=== PATIENT | female | born 1950 | race Caucasian/White ===

== ENCOUNTER 2020-04-04 19:02 | Inpatient (IN) | payer OTHER ==
[~2020-04-04] VITALS: Ht 160 cm; Wt 99.8 kg
--- NOTE | 2020-04-04 19:10 | NUR ---
BIB MEDICS W/ RT LOWER LEG PAIN S/P TRIP & FALL OVER HER . MOST OF PAIN & SWELLING IS RIGHT UNDER RT KNEE BUT HURTS ALL THE WAY DOWN TO HER ANKLE. PAIN IS 10/10 & IS WORSE W/ MOVEMENT. PT ALSO MENTIONS VAGINAL BLEEDING X 2 DAYS; STATES TALKED TO HER DOCTOR'S NURSE ABOUT IT & WAS TOLD MD WILL CALL HER ON TUESDAY TO DISCUSS THIS. DENIES HEMATURIA OR RECTAL BLEEDING. DENIES OTHER INJURY OR CURRENT ILLNESS. PT IS [place]-SPEAKING ONLY.
--- NOTE | 2020-04-04 19:15 | NUR ---
MSE BY JESSA PATRICK.
[2020-04-04 19:16] VITALS: Ht 160 cm; Wt 99.8 kg
--- NOTE | 2020-04-04 19:30 | NUR ---
PT BIBA FOR RLE PAIN TO ANKLE AND KNEE. STS WHO USES WALKER LOSS BALANCE AND FELL ONTOP OF PT. SWELLING NOTED, PT ABLE TO MOVE ALL TOES. NO DEFORMITY. ICE PACK GIVEN. PT MEDICATED FOR PAIN. STS NO ALLERGY TO MEDS.
--- NOTE | 2020-04-04 20:08 | NUR ---
PORTABLE X-RAYS IN PROGRESS.
--- NOTE | 2020-04-04 20:28 | NUR ---
PT LAYING SUPINE IN GURNEY. AAO X4 RESPIRATIONS E/U NO DISTRESS.
--- NOTE | 2020-04-04 20:53 | NUR ---
SEEN IN ROOM 2A. VITAL SIDNS RE CHECK. LAB AT THE BEDSIDE DRAWING BLOOD.
[2020-04-04 21:11] LABS: BASOPHIL % 0.5 % (0-2); PLATELET COUNT 202 x10^3mcL (130-400)
[2020-04-04 21:12] LABS: RED CELL DISTRIBUTION WIDTH 15.1 % (11.5-14.5)
[2020-04-04 21:19] LABS: CALCIUM 9.6 mg/dL (8.5-10.1); CARBON DIOXIDE 30.8 mmol/L (21-32); CHLORIDE SERUM 104 mmol/L (98-107); CREATININE SERUM 0.9 mg/dL (0.6-1.0); GLUCOSE SERUM 107 mg/dL (74-106); SODIUM SERUM 141 mmol/L (136-145)
[2020-04-04 21:23] LABS: ALBUMIN 3.6 g/dL (3.4-5.0); ALKALINE PHOSPHATASE 83 U/L (46-116); ALT/SGPT 56 U/L (14-59); AST/SGOT 30 U/L (15-37); BILIRUBIN TOTAL 0.3 mg/dL (0.20-1.00); TOTAL PROTEIN, SERUM 7.7 g/dL (6.4-8.2)
--- NOTE | 2020-04-04 22:01 | NUR ---
PATIENT WENT FOR CT SCAN.
--- NOTE | 2020-04-04 22:24 | NUR ---
PATIENT RETURN FROM CT SCAN. MEDICATED WITH MORPHINE IM AND WENT BACK FOR CT OF THE RIGHT ANKLE.
--- NOTE | 2020-04-04 22:52 | NUR ---
PATIENT RETURN FROM CT SCAN, HAD ANKLE CT DONE. SALINE LOCK INSERTED TO THE RIGHT HAND # 22. NASAL SEAB DONE FOR [employer]. SPECIMEN PLACED IN LAB BOX.
--- NOTE | 2020-04-04 23:41 | NUR ---
REPORT WAS GIVEN TO GISELLE. PATIENT WILL BE TRANSPORTED TO ROOM 243B.
[2020-04-04] MEDS ORDERED: ZESTRIL2.5 MG PO (23:47)
[2020-04-04] MEDS ORDERED: SIMVASTATIN80 M1 PO (23:48)
[2020-04-04] MEDS ORDERED: IBU600 M2 PO (23:48)
[2020-04-04 23:49] LABS: MAGNESIUM 2.2 mg/dL (1.8-2.4)
[2020-04-04] MEDS ORDERED: TRAMADOL HYDROC1 TA1 PO (23:51)
[2020-04-04 23:59] LABS: CHOLESTEROL/HDL RATIO 2.7
--- NOTE | 2020-04-05 00:09 | NUR ---
TECH AT THE BEDSIDE TO PLACE SPLINT TO THE RIGHT LEG
--- NOTE | 2020-04-05 00:40 | NUR ---
PATIENT HAD A LONGLEG SPLINT PLACE ON THE RIGHT LEG, THEN WAS TRANSPORTED TO ROOM 234B.
[2020-04-05 00:51] VITALS: BP 169/81
--- NOTE | 2020-04-05 01:11 | NUR ---
RECEIVED PT FROM ER VIA [facility] TRANSFER TO BED WITH 4 STAFFS ASSIST, PT EXPERIENCE LOT OF PAIN 9/10 RLE. ALLOW PT TIME TO SITUATED. PLACE TELE #44 ST 109 NOTED. ORIENTED TO CALL LIGHT AND WITHIN REACH. INTERVIEW AND ASSESS PT. DR. POON CAME IN TO INTERVIEW PATIENT. CARE ENDORSE TO JOYCELYN MARTIN.
--- NOTE | 2020-04-05 06:02 | NUR ---
PT SLEPT AT INTERVALS THROUGHOUT THE NIGHT, BREATHING EVEN AND UNLABORED ON RA. COLON CATH INSERTED, DRAINING YELLOW URINE. CONSENT OBTAINED FOR SURGERY. ALL NEEDS ASSESSED AND ATTENDED TO. NO ACUTE DISTRESS NOTED. BED AT LOWEST SETTING. SIDE RAILS X2 UP. CALL LIGHT WITHIN REACH. WILL CONT TO MONITOR.
[2020-04-05 06:21] VITALS: BP 144/79
[2020-04-05 06:59] LABS: BASOPHIL % 0.2 % (0-2); PLATELET COUNT 157 x10^3mcL (130-400)
--- NOTE | 2020-04-05 07:06 | NUR ---
RECEIVED PT FROM LEAD BUSINESS SYSTEMS ANALYST RN. AOX4 ABLE TO MAKE NEEDS KNOWN, DENIES FRIED/DIZZINESS. TELE 44 SR. LUNGS CTA, DENIES SOB/COUGH, RESP E/U, ON RA. ABDOMEN SOFT/ROUND DENIES N/V/D, BOWEL SOUNDS ACTIVE. COLON CATHETER IN PLACE, DRAINING YELLOW URINE. WEAKNESS TO RLE NOTED. PT SCHEDULED FOR SX THIS AM FOR R TIBIA FX. SKIN INTACT. NO C/O PAIN AT THIS TIME. IV TO RH WITH NS 1OOML/HR. CALL LIGHT IN REACH, WILL CONTINUE TO MONITOR.
[2020-04-05 07:07] LABS: RED CELL DISTRIBUTION WIDTH 15.1 % (11.5-14.5)
[2020-04-05 07:26] LABS: CALCIUM 8.8 mg/dL (8.5-10.1); CARBON DIOXIDE 25.6 mmol/L (21-32); CHLORIDE SERUM 106 mmol/L (98-107); CREATININE SERUM 0.8 mg/dL (0.6-1.0); GLUCOSE SERUM 100 mg/dL (74-106); MAGNESIUM 2.1 mg/dL (1.8-2.4); PHOSPHOROUS 3.5 mg/dL (2.5-4.9); SODIUM SERUM 140 mmol/L (136-145)
[2020-04-05 08:08] LABS: UA SPECIFIC GRAVITY >=1.030 (1.005-1.035); microscopic required? YES; urine erythrocyte 2+ (NEGATIVE)
[2020-04-05 08:27] VITALS: BP 143/85
[2020-04-05 08:33] LABS: AMPHETAMINE QUAL UR NONE DETECTED (See below)
--- NOTE | 2020-04-05 14:37 | NUR ---
RECEIVED PT BACK FROM OR. PT WAS GIVEN PAIN MEDICATION YET PT REPEATEDLY STATES "AYUDENME." PT WAS REASSURED AND APPEARS CALMER AT THE TIME. DR. ESTRELLA'S #[id number]
[2020-04-05 16:12] VITALS: BP 119/70
--- NOTE | 2020-04-05 18:13 | NUR ---
PT MEDICATED FOR PAIN AND NAUSEA, NOW SITTING UP IN BED, EATING DINNER.
--- NOTE | 2020-04-05 19:51 | NUR ---
PT RECEIVED FROM AM NURSE. PT A/O X4, GUINEAN SPEAKING, ABLE TO MAKE NEEDS KNOWN. TELE #44, NSR, PT DENIES ANY CP/PRESSURE. PULSES PALPABLE, MINIMAL EDEMA NOTED TO RLE. BREATHING IS EVEN AND UNLABORED ON 2L NC, NO RESP DISTRESS NOTED. ABD SOFT AND ROUND, BOWEL TONES ACTIVE X4 QUAD, NO N/V PRESENT. COLON CATH DRAINING TO GRAVITY, JENNIFER URINE NOTED. S/P RT TIBIA ORIF TODAY, W/ DSRG, SPLINT, AND KNEE IMMOBILIZER IN PLACE, CDI. PT DENIES HAVING ANY PAIN AT THIS TIME. IVF INFUSING WELL TO RH, SITE FREE FROM REDNESS OR SWELLING. NO ACUTE DISTRESS NOTED. BED IN LOWEST SETTING, SIDE RAILS UP X2, CALL LIGHT WITHIN REACH. WILL CONT TO MONITOR.
[2020-04-05 20:51] VITALS: BP 113/61
--- NOTE | 2020-04-05 20:56 | NUR ---
PT C/O 610 RLE PAIN, PRN NORCO GIVEN PER EMAR. NO ACUTE DISTRESS NOTED. WILL CONT TO MONITOR.
--- NOTE | 2020-04-06 00:50 | NUR ---
PT RESTING IN BED WITH EYES CLOSED, BUT IS EASILY AROUSABLE. BREATHING IS EVEN AND UNLABORED, NO RESP DISTRESS NOTED. PT DENIES HAVING ANY PAIN AT THIS TIME. IV ABX INFUSING WELL TO , SITE WNL. NO ACUTE DISTRESS NOTED. CALL LIGHT WITHIN REACH. WILL CONT TO MONITOR.
--- NOTE | 2020-04-06 03:09 | NUR ---
PT C/O 610 RLE PAIN, PRN NORCO GIVEN PER EMAR. NO ACUTE DISTRESS NOTED. WILL CONT TO MONITOR.
[2020-04-06 05:54] VITALS: BP 116/66
--- NOTE | 2020-04-06 06:07 | NUR ---
PT SLEPT WELL THROUGHOUT THE EVENING. BREATHING IS EVEN AND UNLABORED, NO RESP DISTRESS NOTED. RLE DRSG INTACT, CDI. PT REPORTS MILD RLE PAIN, SCHEDULED MOTRIN GIVEN PER EMAR W/ SNACKS. IVF INFUSING WELL TO , SITE WNL. NO ACUTE CHANGES ENCOUNTERED DURING SHIFT. ALL NEED MET AND ANTICIPATED. CALL LIGHT WITHIN REACH. WILL ENDORSE CARE TO AM NURSE.
--- NOTE | 2020-04-06 07:06 | NUR ---
RECEIVED PT FROM QUALITY ASSURANCE ASSESSOR RN. AOX4 ABLE TO MAKE NEEDS KNOWN, DENIES FRIED/DIZZINESS. TELE 44 NSR. EDEMA TO RLE NOTED. DIMINISHED LUNG SOUNDS, ON 3 L NC, RESP E/U, DENIES SOB/COUGH. ABDOMEN SOFT/ROUND, DENIES N/V/D, BOWEL SOUNDS ACTIVE. COLON CATHETER IN PLACE, DRAINING AMBLERE COLORED URINE. WEAKNESS TO RLE SPLINT AT ANKLE IN PLACE, KNEE IMMOBILIZER IN PLACE. DENIES PAIN AT THIS TIME. IV TO RH INFUSING, CDI. CALL LIGHT IN REACH, WILL CONTINUE TO MONITOR.
[2020-04-06 07:37] LABS: CALCIUM 8.7 mg/dL (8.5-10.1); CARBON DIOXIDE 28.8 mmol/L (21-32); CHLORIDE SERUM 104 mmol/L (98-107); CREATININE SERUM 0.8 mg/dL (0.6-1.0); GLUCOSE SERUM 126 mg/dL (74-106); MAGNESIUM 1.9 mg/dL (1.8-2.4); PHOSPHOROUS 2.7 mg/dL (2.5-4.9); POTASSIUM SERUM 4.2 mmol/L (3.5-5.1); SODIUM SERUM 139 mmol/L (136-145)
[2020-04-06 07:59] LABS: BASOPHIL % 0.2 % (0-2); PLATELET COUNT 132 x10^3mcL (130-400)
[2020-04-06 08:21] LABS: RED CELL DISTRIBUTION WIDTH 15.3 % (11.5-14.5)
[2020-04-06 08:54] VITALS: BP 113/62
[2020-04-06 13:01] VITALS: BP 126/66
--- NOTE | 2020-04-06 14:08 | NUR ---
PT MEDICATED WITH NORCO FOR MODERATE PAIN TO RIGHT LEG
--- NOTE | 2020-04-06 15:06 | NUR ---
RT AT BEDSIDE, PT WAS INSTRUCTED ON HOW TO USE IS. PT PERFORMED RETURNED DEMO AND WAS REMINDED TO USE EVERY HOUR.
[2020-04-06 16:22] VITALS: BP 120/66
--- NOTE | 2020-04-06 18:38 | NUR ---
PT MEDICATED FOR SEVERE PAIN TO RT LEG
--- NOTE | 2020-04-06 19:10 | NUR ---
PT RECEIVED FROM AM NURSE. PT A/O X4, COMORAN SPEAKING, ABLE TO MAKE NEEDS KNOWN. TELE #44, NSR, PT DENIES ANY CP/PRESSURE. PULSES PALPABLE, MINIMAL EDEMA NOTED TO RLE. BREATHING IS EVEN AND UNLABORED ON RA, NO RESP DISTRESS NOTED. ABD SOFT AND ROUND, BOWEL TONES ACTIVE X4 QUAD, NO N/V PRESENT. PT REPORTS PASSING GAS POST-UP, BUT DENIES HAVING A BM. COLON CATH DRAINING TO GRAVITY, PALE YELLOW URINE NOTED. S/P RT TIBIA ORIF ON 04/05/20, W/ DSRG, SPLINT, AND KNEE IMMOBILIZER IN PLACE, CDI. PT ABLE TO WIGGLE RT TOES AND FEEL SENSATION. PT DENIES HAVING ANY PAIN AT THIS TIME. IVF INFUSING WELL TO RH, SITE FREE FROM REDNESS OR SWELLING. NO ACUTE DISTRESS NOTED. BED IN LOWEST SETTING, SIDE RAILS UP X2, CALL LIGHT WITHIN REACH. WILL CONT TO MONITOR.
[2020-04-06 20:08] VITALS: BP 120/70
--- NOTE | 2020-04-06 21:03 | NUR ---
PT C/O 10/10 RLE PAIN, PRN DILAUDID IVP GIVEN PER EMAR. NO ACUTE DISTRESS NOTED. WILL CONT TO MONITOR.
[2020-04-07 05:30] VITALS: BP 143/70
--- NOTE | 2020-04-07 06:42 | NUR ---
PT SLEPT WELL THROUGHOUT THE EVENING. BREATHING IS EVEN AND UNLABORED, NO RESP DISTRESS NOTED. RLE DRSG INTACT, CDI. PT DENIES HAVING ANY PAIN AT THIS TIME. IVF INFUSING WELL TO , SITE WNL. NO ACUTE HANGES ENCOUNTERED DURING SHIFT. ALL NEED MET AND ANTICIPATED. CALL LIGHT WITHIN REACH. WILL ENDORSE CARE TO AM NURSE.
[2020-04-07 07:22] LABS: BASOPHIL % 0.4 % (0-2); PLATELET COUNT 132 x10^3mcL (130-400)
[2020-04-07 07:48] LABS: CALCIUM 8.8 mg/dL (8.5-10.1); CARBON DIOXIDE 30.8 mmol/L (21-32); CHLORIDE SERUM 104 mmol/L (98-107); CREATININE SERUM 0.8 mg/dL (0.6-1.0); GLUCOSE SERUM 121 mg/dL (74-106); POTASSIUM SERUM 4.2 mmol/L (3.5-5.1); SODIUM SERUM 138 mmol/L (136-145)
--- NOTE | 2020-04-07 07:50 | NUR ---
RECEIVED PATIENT RESTING IN BED, NO ACUTE DISTRESS NOTED. PATIENT AAOX4, DENIES HEADACHE. TELE MONITOR IN PLACE, NSR. PULSES PALPABLE X4 , EDEMA NOTED TO RLE. PATIENT DENIES SOB, BREATHING E/U ON ROOM AIR. PATIENT DENIES PASSING GAS, AND NO BM NOTED AT THIS TIME. COLON CATH INTACT AND DRAINING TO GRAVITY. SPLINT TO RIGHT ANKLE IN PLACE, KNEE IMMOBILIZER IN PLACE. D5 1/2NS W/KCL 20MEQ INFUSING TO RIGHT HAND AT 100CC/HR, IV SITE CDI&PATNENT .CALL LIGHT WITHIN REACH, WILL CONTINUE TO MONITOR.
[2020-04-07 08:09] LABS: RED CELL DISTRIBUTION WIDTH 15.4 % (11.5-14.5)
[2020-04-07 08:39] VITALS: BP 93/61
--- NOTE | 2020-04-07 09:42 | NUR ---
COVID TEST DONE AT THIS TIME.
--- NOTE | 2020-04-07 10:05 | NUR ---
PATIENT SITTING UP IN BED USING INCENTIVE SPIROMETER, PATIENT EDUCATED ON THE BENEFITS OF THE IS. PATIENT AWARE TO USE I.S. AT LEAST X10/HR, WHILE AWAKE. ALL NEEDS MET AT THIS TIME, WILL CONTINUE TO MONITOR.
[2020-04-07 12:26] VITALS: BP 141/80
--- NOTE | 2020-04-07 13:47 | NUR ---
UPDATE DR. HEADLEY ON PATIENTS STATUS, STATED PATIENT SHOULD BE MEDICATED WITH NORCO & MOTRIN FOR PAIN AND SHOULD ONLY BE GIVE DILUADID FOR BREAKTHROUGH PAIN. WILL CONTINUE TO MONITOR AND MANAGE PAIN.
--- NOTE | 2020-04-07 14:39 | NUR ---
PATIENT WAS C/O CONTINOUS RLE PAIN THAT INCREASES WITH MOVEMENT. MEDICATED PATIENT WITH NORCO PO PER PROTOCOL (SEE EMAR). ALL NEEDS MET AT THIS TIME, WILL CONTINUE TO MONITOR. CALL LIGHT WITHIN REACH.
[2020-04-07 17:16] VITALS: BP 124/86
--- NOTE | 2020-04-07 19:32 | NUR ---
PATIENT IS STABLE, NO ACUTE CHANGES NOTED THROUGHOUT SHIFT. ALL CARE ENDORSED TO NIGHT RN.
[2020-04-07 22:40] VITALS: BP 105/69
[2020-04-08 05:49] VITALS: BP 120/63
--- NOTE | 2020-04-08 06:30 | NUR ---
PATIENT IS AAO X 4, BEDRESTING. PAIN IS CURRENTLY UNDER CONTROL. ON ROOM AIR, VITAL SIGNS STABLE. IV IS RUNNING WELL, NO REDNESS OR INFILTRATION NOTED. WILL ENDORSE TO ONCOMING RN.
[2020-04-08 07:47] LABS: BASOPHIL % 0.4 % (0-2); PLATELET COUNT 142 x10^3mcL (130-400)
--- NOTE | 2020-04-08 08:10 | NUR ---
RECEIVED PATIENT RESTING IN BED, NO ACUTE DISTRESS NOTED. PATIENT AAOX4, DENIES HEADACHE. TELE MONITOR IN PLACE, DENIES CHEST PAIN. PATIENT REPORTS CONTINOUS PAIN TO RLE, WILL MEDICATE PER PROTOCOLS. NONPITTING EDEMA NOTED TO RLE, RLE ELEVATED WITH A PILLOW. DENIES SOB , BREATHING E/U. COLON CATH DRAINING TO GRAVITY, YELLOW URINE NOTED. KNEE IMMOBILIZER IN PLACE. DRESSING TO RLE CDI, NO DRAINAGE NOTED. D51/2NS WITH KCL 20MEQ INFUSING AT 100CC/HR TO RIGHT HAND,IV SITE CDI&PATENT. CALL LIGHT WITHIN REACH
[2020-04-08 08:19] LABS: RED CELL DISTRIBUTION WIDTH 15.4 % (11.5-14.5)
[2020-04-08 08:27] VITALS: BP 140/87
--- NOTE | 2020-04-08 08:44 | NUR ---
PATIENT WAS C/O OF INCREASE PAIN TO RLE, MEDICATED PATIENT WITH NORCO PER PROTOCOL (SEE EMAR). REPOSITIONED PATIENT FOR COMFORT, EDUCATED PATIENT ON PAIN MANAGEMENT. WILL CONTINUE TO MONITOR.
[2020-04-08 13:18] VITALS: BP 141/65
--- NOTE | 2020-04-08 13:30 | NUR ---
PHYSICAL THERAPY AT BEDSIDE.
--- NOTE | 2020-04-08 17:06 | NUR ---
PATIENT REPORTED INCREASE IN PAIN TO RLE 09/, MEDICATED PATIENT WITH DILAUDID PER PROTOCOL (SEE EMAR). REPOSITIONED PATIENT FOR COMFORT. CALL LIGHT WITHIN REACH, WILL CONTINUE TO MONITOR.
[2020-04-08 17:26] VITALS: BP 120/70
--- NOTE | 2020-04-08 19:30 | NUR ---
RECEIVED REPORT FROM VERONICA RAMOS. PT AWAKE, ALERT, BROWISING ON PHONE. IN NAD, HOWEVER REQUESTS PAIN MEDICATIONS MADELIN. THIS RN TO FOLLOW UP SHORTLY. RT LEG WITH DRESSING/SPLINT/IMMOBILIZER IN PLACE. CDI. COLON CATH PRESENT. IVF INFUSING PER ORDERS. UPDATED ON POC. SAFETY CHECKS COMPLETE, CALL [place] WITHIN REACH.
--- NOTE | 2020-04-08 19:35 | NUR ---
PATIENT RESTING IN BED, NO ACUTE CHANGES NOTED THROUGHOUT SHIFT. ENDORSED ALL CARE TO NIGHT RN.
[2020-04-08 21:54] VITALS: BP 133/66
--- NOTE | 2020-04-09 | NUR ---
PT ASLEEP, EASILY AROUSABLE TO VOICE. RECEIVED PRN DILAUDID AT APPROX 1955 AND NORCO AT 2200. PT EDUCATED ON TAKING PILL FORM OF PAIN MEDICATIONS FOR LONGER LASTING PAIN RELIEF, AND TRY TO TAKE IV MED FOR OCCASIONAL BREAKTHROUGH. VERBALIZES UNDERSTANDING. +GAS, ABD SOFT, NON TENDER+BS. GIVEN COLACE, ENCOURAGED HYDRATION, MINIMIZE OPIATES TOLERATED. SAFETY CHECKS COMPLETE, NAD. CALL [place] WITHIN REACH, HOURLY ROUNDS ONGOING.
[2020-04-09 06:06] VITALS: BP 132/87
--- NOTE | 2020-04-09 07:30 | NUR ---
RECEIVED PATIENT IN BED ALERT ORIENTED ABLE TO V ERBALIZE NEEDS WELL. IVF INLFUSING WELL TO RIGHT HAND. RIGHT LEG NOTED WITH IMMOBILIZER NAD RT ANKLE SPLINT WITH DRESSING IN PLACE. PATIENT'S TOES ARE WARM TO TOUCH AND PATIENT IS ABLE TO WIGGLE TOES. RESP EVEN AND UNLABORED, LUNGS CLEAR ON ROOM AIR. COLON CATH DRAINING YELLOW URINE. ABD SOFT BOWEL SOUNDS ACTIVE. PER PATIENT SHE IS PASSING GAS BUT HAS NOT HAD ANY BM OF YET. IVF INFUSING WELL TO RIGHT HAND. CALL LIGHT WITHIN REACH AND PATIENT INSTRUCTED TO USE FOR ASSIST. SIDERAILS UP AND BED IN LOW POSTION.
[2020-04-09 07:59] VITALS: BP 138/81
[2020-04-09] MEDS ORDERED: LOV30I SC (10:11)
[2020-04-09] MEDS ORDERED: PRI20 PO (10:12)
[2020-04-09] MEDS ORDERED: ZES5 PO (10:12)
[2020-04-09] MEDS ORDERED: LIPI20 PO (10:12)
[2020-04-09] MEDS ORDERED: D-10001 TAB PO (10:12)
[2020-04-09 11:49] VITALS: BP 118/72
--- NOTE | 2020-04-09 13:27 | NUR ---
PATIENT'S PLAN OF CARE WAS DISCUSSED AND REVIEWED WITH VISUAL SPECIALIST:JUNG MCCAIN. I HAVE REVIEWED THE DATA COLLECTION BY VISUAL SPECIALIST (NAME):JUNG MCCAIN. ENTERED ON (DATE/TIME):04/09/20 I CONCUR WITH THE DATA AND ANY EXCEPTIONS OR COMMENTS ARE LISTED BELOW:
--- NOTE | 2020-04-09 15:28 | NUR ---
PATIENT REMAINS IN BED. P.T WAS INTO SEE PAIENT TODAY. PATIENT C/O NOT HAVING A BM , DULCOLAX TAB GIVEN ORDERED. WILL MONITOR FOR RESULTS.
[2020-04-09 15:43] VITALS: BP 126/79
--- NOTE | 2020-04-09 18:00 | NUR ---
PATIENT C/O HAVING RT LEG PAIN 8/10 ON THE PAIN SCALE. MEDICATED WITH NORCO PO AT THIS TIME. WILL MONITOR FOR EFFECT.
--- NOTE | 2020-04-09 18:35 | NUR ---
PATIENT READY FOR D/C TO SNF. KARL HERRERA.
--- NOTE | 2020-04-09 18:54 | NUR ---
REPORT CALLED TO ROSARIO MARTIN AT [facility] AT THIS TIME. RECREATION CENTER DIRECTOR TIME FOR PATIENT IS WITH BENITO AT [id number]. FAMILY IS AWARE PER PATIENT AND JAIRO DISCHARGE PLANER.
[2020-04-09 20:05] VITALS: BP 132/73
--- NOTE | 2020-04-09 20:06 | NUR ---
PATIENT TRANSFERRED TO [facility] VIA [facility] IN STABLE CONDITION. PATIENT AWAKE, ALERT, ORIENTED X4. KOREAN SPEAKING, UNDERSTAND A LITTLE NEPALESE. RESPIRATION EVEN AND UNLABORED, ON ROOM AIR. COLON CATHETER IN PLACED, PATENT AND INTACT. SPLINT TO R ANKLE AND KNEE IMMOBILIZER IN PLACED. IV SITE DISCONTINUED BY JUNG BEAN LVN. REPORT GIVEN BY JUNG BEAN LVN. REPORT AND TRANSFER PACKET GIVEN TO [facility].
== END 2020-04-09 20:19 | DRG 494 ==
LOC: ED 19:02 → DU 22:22 → MU 22:22 → DU 04-05 01:12 → MU 04-08 11:48
PROVIDERS: Orthopaedic Surgery; Specialist; ADMIT Internal Medicine; ATTEND Internal Medicine
PROC: 0QSG04Z Reposition Right Tibia with Internal Fixation Device, Open Approach (ICD-10-PCS; principal; 2020-04-05 09:30)
DX: S82.141A Displaced bicondylar fracture of right tibia, initial encounter for closed fracture (principal); S82.491A Other fracture of shaft of right fibula, initial encounter for closed fracture; I10 Essential (primary) hypertension; M19.90 Unspecified osteoarthritis, unspecified site; E78.5 Hyperlipidemia, unspecified; W18.39XA Other fall on same level, initial encounter; G89.29 Other chronic pain; E78.00 Pure hypercholesterolemia, unspecified; Z20.828 Contact with and (suspected) exposure to other viral communicable diseases; Y93.89 Activity, other specified; Y92.89 Other specified places as the place of occurrence of the external cause; Y99.8 Other external cause status; Z79.899 Other long term (current) drug therapy; Z79.891 Long term (current) use of opiate analgesic
CPT/HCPCS: 83880; 97110-GP; 97530-GP; G0378; J0690; J1170; J1650; J1885; J2270; J2405; J2704; J3010; J3480; J3490; J7030; J7120; Q0092; U0003-CS